=== PATIENT | female | born 1975 | race Caucasian/White ===

== ENCOUNTER 2021-03-03 02:55 | Emergency (ER) | payer BC ==
[2021-03-03] MEDS ORDERED: Orphenadrine 60 MG/2 ML Inj IV ONE (03:18)
[2021-03-03] MEDS ORDERED: Ketorolac 30 MG/ML SDV IVPUSH ONE (03:19)
[2021-03-03] MEDS ORDERED: Sodium Chloride 0.9% 1,000 ML IV ONE (03:19)
[2021-03-03] MEDS ORDERED: Ketorolac 30 MG/ML SDV ONE (03:44)
[2021-03-03] MEDS ORDERED: Orphenadrine 60 MG/2 ML Inj ONE (03:45)
[2021-03-03] MEDS ORDERED: Methocarbamol 500 MG Tab ONE (04:30)
--- NOTE | 2021-03-03 12:13 | EDM.PDOC ---
ED HPI GENERAL MEDICAL PROBLEM - General Chief Complaint: Lower Extremity Injury/Pain Stated Complaint: leg cramps Time Seen by Provider: 03/03/21 03:10 - History of Present Illness INITIAL COMMENTS - FREE TEXT/NARRATIVE: Pt comes to the ER by ambulance with C/O bilateral leg cramps, feeling dizzy at times. The leg cramps started when she woke up to take the dog out. The left leg feels ok now, but the rt leg is still sore. She denies any falls, injuries, or recent change in activity. She has not been sick lately. Right Leg Pain Score (Numeric/FACES): 4 - Related Data Allergies Allergy/AdvReac Type Severity Reaction Status Date / Time No Known Allergies Allergy Verified 03/03/21 03:15 Home Meds: Home Meds Naproxen 500 mg PO ASDIRECTED 03/03/21 [History] Past Medical History [employer] History: Reports: Other [employer] History: miscarriage Neurological History: Reports: Concussion, Migraines - Past Surgical History Musculoskeletal Surgical History: Reports: Arthroscopic Procedure Social & Family History - Tobacco Use Years of Tobacco use: 30 Packs/Tins Daily: 1 - Recreational Drug Use Recreational Drug Use: No Review of Systems - Review of Systems Review Of Systems: Comprehensive ROS is negative, except as noted in HPI. Musculoskeletal: Reports: Other (Rt thigh pain.) Neurological: Reports: Dizziness ED EXAM, GENERAL - Physical Exam Exam: See Below Extremities: Other (examining her medial R thigh reveals tenderness with palpation. No mass or muscle tightness noted. Skin is intact.) Course - Vital Signs Last Recorded V/S: Last Vital Signs Temp 97.6 F 03/03/21 04:11 Pulse 68 03/03/21 04:11 Resp 18 03/03/21 04:35 BP 98/68 03/03/21 04:35 Pulse Ox 99 03/03/21 04:11 - Orders/Labs/Meds Labs: Laboratory Tests 03/03/21 03/03/21 03/03/21 Range/Units 03:39 03:39 04:07 WBC 9.4 (4.0-11.0) K/uL RBC 4.01 (3.80-5.80) M/uL Hgb 12.9 (11.5-16.5) g/dL Hct 37.2 (37.0-47.0) % MCV 93 (76-96) fL MCH 32.2 H (27.0-32.0) pg MCHC 34.7 (31.0-35.0) g/dL RDW 11.8 (11.0-16.0) % Plt Count 226 (150-500) K/uL MPV 10.7 H (6.0-10.0) fL Neut % (Auto) 62.7 (45.0-70.0) % Lymph % (Auto) 25.6 (20.0-40.0) % [place] % (Auto) 9.5 (3.0-10.0) % Eos % (Auto) 2.0 (1.0-5.0) % Baso % (Auto) 0.2 (0.0-0.5) % Neut # (Auto) 5.89 (2.00-7.50) K/uL Lymph # (Auto) 2.41 (1.50-4.00) K/uL [place] # (Auto) 0.89 H (0.20-0.80) K/uL Eos # (Auto) 0.19 (0.04-0.40) K/uL Baso # (Auto) 0.02 (0.02-0.10) K/uL Sodium 145 (136-145) mmol/L Potassium 3.4 L (3.5-5.1) mmol/L Chloride 106 (98-107) mmol/L Carbon Dioxide 30.1 (21.0-32.0) mmol/L Anion Gap 12.3 (5.0-15.0) mmol/L BUN 19 (8-26) mg/dL Creatinine 0.87 (0.55-1.02) mg/dL Est Cr Clr Drug Dosing 72.00 mL/min Estimated GFR (MDRD) > 60 (>60) MLS/MIN BUN/Creatinine Ratio 21.8 (6-25) Glucose 143 H (74-100) mg/dL Calcium 9.1 (8.5-10.1) mg/dL Total Bilirubin 0.4 (0.0-1.0) mg/dL AST 19 (15-37) U/L ALT 25 (12-78) U/L Alkaline Phosphatase 74 (46-116) U/L Total Protein 6.9 (6.4-8.2) g/dL Albumin 4.0 (3.4-5.0) g/dL Globulin 2.9 (2.2-4.2) g/dL Albumin/Globulin Ratio 1.4 (0.8-2.0) Urine Color Yellow Urine Appearance Clear (CLEAR) Urine pH 5.5 (5.0-8.0) Ur Specific [place] >= 1.030 (1.003-1.030) Urine Protein Negative (NEGATIVE) mg/dL Urine Glucose (UA) Negative (NEGATIVE) mg/dL Urine Ketones Negative (NEGATIVE) mg/dL Urine Occult Blood Negative (NEGATIVE) Urine Nitrite Negative (NEGATIVE) Urine Bilirubin Negative (NEGATIVE) Urine Urobilinogen 0.2 (0.2-1.0) E.U./dL Ur Leukocyte Esterase Negative (NEGATIVE) U Hyaline Cast (Auto) Few /HPF Urine RBC Not seen /HPF Urine WBC 0-5 H /HPF Ur Squamous Epith Cells Few /HPF Urine Opiates Screen (NEGATIVE) Ur Oxycodone Screen (NEGATIVE) Urine Methadone Screen (NEGATIVE) Ur Barbiturates Screen (NEGATIVE) Ur Tricyclics Screen (NEGATIVE) Ur Phencyclidine Scrn (NEGATIVE) Ur Amphetamine Screen (NEGATIVE) U Methamphetamines Scrn (NEGATIVE) Urine MDMA Screen (NEGATIVE) U Benzodiazepines Scrn (NEGATIVE) U Cocaine Metab Screen (NEGATIVE) U Marijuana (THC) Screen (NEGATIVE) 03/03/21 Range/Units 04:07 WBC (4.0-11.0) K/uL RBC (3.80-5.80) M/uL Hgb (11.5-16.5) g/dL Hct (37.0-47.0) % MCV (76-96) fL MCH (27.0-32.0) pg MCHC (31.0-35.0) g/dL RDW (11.0-16.0) % Plt Count (150-500) K/uL MPV (6.0-10.0) fL Neut % (Auto) (45.0-70.0) % Lymph % (Auto) (20.0-40.0) % [place] % (Auto) (3.0-10.0) % Eos % (Auto) (1.0-5.0) % Baso % (Auto) (0.0-0.5) % Neut # (Auto) (2.00-7.50) K/uL Lymph # (Auto) (1.50-4.00) K/uL [place] # (Auto) (0.20-0.80) K/uL Eos # (Auto) (0.04-0.40) K/uL Baso # (Auto) (0.02-0.10) K/uL Sodium (136-145) mmol/L Potassium (3.5-5.1) mmol/L Chloride (98-107) mmol/L Carbon Dioxide (21.0-32.0) mmol/L Anion Gap (5.0-15.0) mmol/L BUN (8-26) mg/dL Creatinine (0.55-1.02) mg/dL Est Cr Clr Drug Dosing mL/min Estimated GFR (MDRD) (>60) MLS/MIN BUN/Creatinine Ratio (6-25) Glucose (74-100) mg/dL Calcium (8.5-10.1) mg/dL Total Bilirubin (0.0-1.0) mg/dL AST (15-37) U/L ALT (12-78) U/L Alkaline Phosphatase (46-116) U/L Total Protein (6.4-8.2) g/dL Albumin (3.4-5.0) g/dL Globulin (2.2-4.2) g/dL Albumin/Globulin Ratio (0.8-2.0) Urine Color Urine Appearance (CLEAR) Urine pH (5.0-8.0) Ur Specific [place] (1.003-1.030) Urine Protein (NEGATIVE) mg/dL Urine Glucose (UA) (NEGATIVE) mg/dL Urine Ketones (NEGATIVE) mg/dL Urine Occult Blood (NEGATIVE) Urine Nitrite (NEGATIVE) Urine Bilirubin (NEGATIVE) Urine Urobilinogen (0.2-1.0) E.U./dL Ur Leukocyte Esterase (NEGATIVE) U Hyaline Cast (Auto) /HPF Urine RBC /HPF Urine WBC /HPF Ur Squamous Epith Cells /HPF Urine Opiates Screen Negative (NEGATIVE) Ur Oxycodone Screen Negative (NEGATIVE) Urine Methadone Screen Negative (NEGATIVE) Ur Barbiturates Screen Negative (NEGATIVE) Ur Tricyclics Screen Negative (NEGATIVE) Ur Phencyclidine Scrn Negative (NEGATIVE) Ur Amphetamine Screen Negative (NEGATIVE) U Methamphetamines Scrn Negative (NEGATIVE) Urine MDMA Screen Negative (NEGATIVE) U Benzodiazepines Scrn Negative (NEGATIVE) U Cocaine Metab Screen Positive H (NEGATIVE) U Marijuana (THC) Screen Positive H (NEGATIVE) Meds: Medications Discontinued Medications Generic Name Dose Route Start Last Admin Trade Name Maximus PRN Reason Stop Dose Admin Sodium Chloride 1,000 mls @ 999 mls/hr 03/03/21 03:19 03/03/21 03:32 Normal Saline IV 03/03/21 04:19 999 mls/hr .BOLUS ONE Administration Ketorolac Tromethamine 30 mg 03/03/21 03:19 03/03/21 03:40 Ketorolac 30 Mg/Ml Sdv IVPUSH 03/03/21 03:20 30 mg ONETIME ONE Administration Ketorolac Tromethamine Confirm 03/03/21 03:44 03/03/21 03:41 Ketorolac 30 Mg/Ml Sdv Administered 03/03/21 03:45 Not Given Dose 30 mg .ROUTE .STK-MED ONE Orphenadrine Citrate 60 mg 03/03/21 03:18 03/03/21 03:36 Orphenadrine 60 Mg/2 Ml Inj IV 03/03/21 03:19 60 mg ONETIME ONE Administration Orphenadrine Citrate Confirm 03/03/21 03:45 03/03/21 03:41 Orphenadrine 60 Mg/2 Ml Inj Administered 03/03/21 03:46 Not Given Dose 60 mg .ROUTE .STK-MED ONE - Re-Assessments/Exams Free Text/Narrative Re-Assessment/Exam: 03/03/21 12:11 Pt was given Norflex and Toradol IV. She was also given 1 Liter of N.S. Her pain improved and she is not dizzy. Labs show both THC and Cocaine. She denies using but states she is exposed to them. She is able to stand and walk without any worsening of symptoms. She will be discharged home. Roboxin will be started. She is to also use Motrin. Rest for 1 day[address] Do not use any street drugs. 03/03/21 12:13 Departure - Departure Time of Disposition: 04:15 Disposition: Home, Self-Care 01 Condition: Good Clinical Impression: Muscle spasm - Discharge Information Instructions: Muscle Cramps and Spasms, [id number] Referrals: PCP,None [Primary Care Provider] - Forms: ED Department Discharge Care Plan Goals: take Methocarbamol 500mg one tab every 8 hrs as needed for muscle cramps. Activity as tolerated . Follow up in clinic or ER as needed. Sepsis Event Note (ED) - Evaluation Sepsis Screening Result: No Definite Risk - Focused Exam Vital Signs: Vital Signs Temp Pulse Resp BP Pulse Ox 03/03/21 04:35 18 98/68 03/03/21 04:11 97.6 F 68 18 99/68 99 03/03/21 03:09 97.4 F 74 18 112/67 97
== END 2021-03-03 04:41 | disposition home or self-care (01) ==
LOC: LB.ED 02:55
DX: M62.838 Other muscle spasm (principal); Z72.0 Tobacco use
CPT/HCPCS: 36415; 80053; 80307; 81001; 85025; 96374; 96375; 99284; A9270; J1885; J2360; J7030

== ENCOUNTER 2022-05-13 22:33 | Emergency (ER) | payer SELFPAY ==
[2022-05-13] MEDS ORDERED: Ciprofloxacin 500 MG Tab ONE (23:00)
== END 2022-05-13 23:30 | disposition home or self-care (01) ==
LOC: LB.ED 22:33
DX: N39.0 Urinary tract infection, site not specified (principal)
CPT/HCPCS: 80307; 81001; 99283; A9270-GY